=== PATIENT | female | born 1975 | race Caucasian/White ===

== ENCOUNTER 2017-10-06 11:44 | Day surgery (SDC) | payer BC ==
[~2017-10-06 11:44] MED LIST: Lidocaine 1% 50 ML MDV ONE; Silver Nitrate Applicator Each ONE
[2017-10-06] MEDS ORDERED: Lactated Ringers 1,000 ML IV SCH (12:30)
[2017-10-06] MEDS ORDERED: Propofol 200 MG/20 ML SDV ONE ×2 (12:55→13:10)
[2017-10-06] MEDS ORDERED: Midazolam 1 MG/ML 2 ML SDV ONE ×2 (12:55→13:03)
[2017-10-06] MEDS ORDERED: fentaNYL 100 MCG/2 ML SDV ONE (12:55)
--- NOTE | 2017-10-06 13:34 | PCM.PRNOTE ---
- Free Text/Narrative Note: PREOPERATIVE DIAGNOSIS: Abnormal Uterine bleeding AUB POSTOPERATIVE DIAGNOSIS: same PROCEDURE: D&C and hysteroscopy with endometrial ablation using NovaSure. EBL: Minimal. ANESTHESIA: sedation with cervical block COMPLICATIONS: No complications. FINDINGS: Proliferative endometrium, both ostia visualized. PROCEDURE IN DETAIL: Risks, benefits and alternatives discussed with the patient at length. Informed consent was obtained. The patient was taken to the operating room. anesthesia was obtained without difficulty. She was prepped and draped in the normal sterile fashion in lithotomy position in [facility]. Examination under anesthesia revealed a small anteverted uterus with moderate descent, cystocele grade 2, small perineal body. No adnexal masses were palpable. A weighted speculum was placed inside the vagina. The anterior lip of the cervix was grasped with single-tooth tenaculum. The cervix was sounded to 3 cm. The uterus was sounded to 6 cm, hysteroscopy showed findings as above, The cervix was gently dilated to ensure reduction of diagnostic hysteroscope. Clots and proliferative endometrium were noted. Both ostia were seen. The hysteroscope was removed. Sharp curettage followed. EMC was obtained. NovaSure device was then introduced inside the uterus. Uterine width was assessed to be 4cm The cavity assessed and labeled. Following, the NovaSure was removed. The hysteroscope was reintroduced. The entire endometrial cavity was noted to be completely ablated. All instruments removed from the patients vagina. Hemostasis was noted from the tenaculum site. Power 132 W and time 109 sec. The patient was taken to the recovery room in stable condition.
[2017-10-06] MEDS ORDERED: Acetaminophen/oxyCODONE 325-5 MG Tab PO PRN (14:20)
== END 2017-10-06 14:55 | disposition home or self-care (01) ==
LOC: JP.SDS 11:44
PROVIDERS: ATTEND Obstetrics & Gynecology
DX: N85.00 Endometrial hyperplasia, unspecified (principal); N72 Inflammatory disease of cervix uteri; L70.0 Acne vulgaris; Z98.890 Other specified postprocedural states; Z79.899 Other long term (current) drug therapy
CPT/HCPCS: 36415; 58563; 81025; 86850; 86900; 86901; 88305; A9270; J2250; J2704; J3010; J7120